=== PATIENT | female | born 1980 | race Caucasian/White ===

== ENCOUNTER 2019-11-15 12:20 | Outpatient (CLI) | payer MEDICARE, MEDICAID, SELFPAY ==
[2019-11-15 12:32] LABS: Basophils Absolute Auto 0.04 K/mm3 (0.00-0.10); Basophils Percent Auto 0.9 % (0.0-1.0); Eosinophils Absolute Auto 0.23 K/mm3 (0.02-0.50); Eosinophils Percent Auto 4.9 % (1.0-6.0); Hematocrit 34.9 % (35.0-49.0); Hemoglobin 10.9 g/dL (12.0-15.0); Immature Granulocyte Absolute 0.01 K/mm3 (0.00-0.00); Immature Granulocyte Percent A 0.2 % (0.0-0.0); Lymphocytes Absolute Auto 0.53 K/mm3 (1.10-4.50); Lymphocytes Percent Auto 11.4 % (18.0-42.0); Mean Corpuscular HGB Conc 31.2 g/dL (32.0-36.0); Mean Corpuscular Hemoglobin 31.7 pg (27.0-31.0); Mean Corpuscular Volume 101.5 fL (78.0-102.0); Mean Platelet Volume 11.8 fl (9.2-11.8); Monocytes Percent Auto 6.5 % (2.0-11.0); Neutrophils Absolute Auto 3.5 K/mm3 (1.7-7.2); Neutrophils Percent Auto 76.1 % (50.0-70.0); Platelet Count Result 252 K/mm3 (150-420); Red Blood Count 3.44 M/mm3 (4.20-5.40); Red Cell Distribution Width 15.9 % (11.6-14.4); White Blood Count 4.7 K/mm3 (4.8-10.8)
[2019-11-15 13:16] LABS: Hemoglobin A1C 7.6 % (<5.7)
[2019-11-15 13:35] LABS: Alanine Aminotransferase 49 U/L (14-59); Albumin Level 3.2 g/dL (3.4-5.0); Alkaline Phosphatase 241 U/L (46-116); Anion Gap 15.1 mmol/L (7-16); Aspartate Amino Transferase 36 U/L (15-37); Bilirubin,Total 0.7 mg/dL (0.00-1.00); Blood Urea Nitrogen 49 mg/dL (7-18); Calcium 8.3 mg/dL (8.5-10.1); Carbon Dioxide 29 mmol/L (21-32); Chloride 103 mmol/L (98-108); Estimated Glomerular Filt Rate 10; Glucose 205 mg/dL (70-99); Osmolality Calculated 315 mOsm/kg (285-295); Potassium 4.1 mmol/L (3.5-5.1); Sodium 143 mmol/L (136-145); Thyroid Stimulating Hormone 2.96 uIU/mL (0.36-3.74); Total Protein 6.2 g/dL (6.4-8.2)
== END 2019-11-15 12:21 | disposition home or self-care (01) ==
LOC: CHSLAB 12:22
PROVIDERS: PCP Family Medicine; Visit Provider Family Medicine
DX: E10.42 Type 1 diabetes mellitus with diabetic polyneuropathy (principal); D72.819 Decreased white blood cell count, unspecified; D64.9 Anemia, unspecified
CPT/HCPCS: 36415; 80053; 83036; 84443; 85025

== ENCOUNTER 2020-02-21 13:32 | Outpatient (CLI) | payer MEDICARE, SELFPAY ==
[2020-02-21 13:45] LABS: Basophils Absolute Auto 0.05 K/mm3 (0.00-0.10); Eosinophils Absolute Auto 0.23 K/mm3 (0.02-0.50); Eosinophils Percent Auto 4.6 % (1.0-6.0); Hemoglobin 11.3 g/dL (12.0-15.0); Immature Granulocyte Absolute 0.02 K/mm3 (0.00-0.00); Immature Granulocyte Percent A 0.4 % (0.0-0.0); Lymphocytes Absolute Auto 0.46 K/mm3 (1.10-4.50); Lymphocytes Percent Auto 9.3 % (18.0-42.0); Mean Corpuscular HGB Conc 31.4 g/dL (32.0-36.0); Mean Corpuscular Hemoglobin 31.5 pg (27.0-31.0); Mean Corpuscular Volume 100.3 fL (78.0-102.0); Mean Platelet Volume 10.6 fl (9.2-11.8); Monocytes Absolute Auto 0.26 K/mm3 (0.10-0.90); Monocytes Percent Auto 5.2 % (2.0-11.0); Neutrophils Absolute Auto 3.9 K/mm3 (1.7-7.2); Neutrophils Percent Auto 79.5 % (50.0-70.0); Platelet Count Result 219 K/mm3 (150-420); Red Blood Count 3.59 M/mm3 (4.20-5.40); Red Cell Distribution Width 15.3 % (11.6-14.4)
[2020-02-21 13:54] LABS: Hemoglobin A1C 6.8 % (<5.7)
[2020-02-21 14:24] LABS: Alanine Aminotransferase 34 U/L (14-59); Albumin Level 2.8 g/dL (3.4-5.0); Alkaline Phosphatase 169 U/L (46-116); Anion Gap 13.9 mmol/L (7-16); Aspartate Amino Transferase 30 U/L (15-37); Bilirubin,Total 0.5 mg/dL (0.00-1.00); Blood Urea Nitrogen 56 mg/dL (7-18); Calcium 8.3 mg/dL (8.5-10.1); Carbon Dioxide 30 mmol/L (21-32); Chloride 102 mmol/L (98-108); Creatine Kinase 255 U/L (26-192); Estimated Glomerular Filt Rate 9; Glucose 132 mg/dL (70-99); Osmolality Calculated 311 mOsm/kg (285-295); Potassium 3.9 mmol/L (3.5-5.1); Sodium 142 mmol/L (136-145); Total Protein 5.3 g/dL (6.4-8.2)
== END 2020-02-21 13:33 | disposition home or self-care (01) ==
LOC: CHSLAB 13:35
PROVIDERS: PCP Family Medicine; Visit Provider Family Medicine
DX: E78.2 Mixed hyperlipidemia (principal); E10.42 Type 1 diabetes mellitus with diabetic polyneuropathy
CPT/HCPCS: 36415; 80053; 82550; 83036; 85025

== ENCOUNTER 2020-03-01 09:53 | Outpatient (RCR) | payer MEDICARE, SELFPAY ==
[2020-03-01 10:16] LABS: INR 2.1; Prothrombin Time 21.1 Seconds (9.64-11.0)
== END 2020-05-30 23:59 | disposition home or self-care (01) ==
LOC: CHSLAB 09:53
PROVIDERS: PCP Family Medicine; Visit Provider Family Medicine
DX: I48.91 Unspecified atrial fibrillation (principal); Z79.01 Long term (current) use of anticoagulants; Z95.3 Presence of xenogenic heart valve
CPT/HCPCS: 36415; 85610

== ENCOUNTER 2020-03-09 21:06 | Observation (INO) | payer MEDICARE, MEDICAID, SELFPAY ==
--- NOTE | ~2020-03-09 | XR_ITS ---
EXAMINATION: XR chest 1V portable DATE: 03/09/2020 22:30 INDICATION: Left-sided chest pain TECHNIQUE: frontal view of the chest was obtained. COMPARISON: Chest radiograph dated 08/02/2019 FINDINGS: The lungs remain clear with no focal airspace opacities, pulmonary edema, pleural effusion or pneumot horax. Cardiomegaly with change of prior median sternotomy and aortic valve replacement. There are ad ditional mediastinal clips which could also be related to coronary artery bypass grafting. Stenting o f the left brachiocephalic vein. Implantable site monitor projects over the left lower lung zone. Again seen is osteotomy versus osteolysis of the distal left clavicle. IMPRESSION: 1. No acute cardiopulmonary disease. 2. Cardiomegaly. 3. Postoperative changes as detailed above. Reviewed, dictated and finalized at location A.
[2020-03-09 21:08] VITALS: BP 118/44; PULSE 85; RESP 19; TEMP 36.7; O2SAT 100
[2020-03-09 21:15] VITALS: BP 126/54; PULSE 85; RESP 18; O2SAT 98
[2020-03-09 21:18] VITALS: PULSE 78
--- NOTE | 2020-03-09 21:23 | ECG_ITS ---
Measurements Intervals [place] Rate: 79 P: ID: 0 QRS: 204 QRSD: 166 T: 61 QT: 455 QTc: 522 Interpretive Statements ATRIAL SENSE- ELECTRONIC VENTRICULAR PACEMAKER BASELINE ARTIFACT- I, II NO FURTHER INTERPRETATION IS POSSIBLE ATYPICAL ECG Electronically Signed On 03-10-2020 17:28:51 CDT by Polo Acosta D.O.
--- NOTE | 2020-03-09 21:58 | ED.CHESTPAIN ---
HPI - Chest Pain General Chief Complaint: Chest Pain Stated Complaint: PAIN IN MY WHOLE L SIDE Time Seen by Provider: 03/09/20 21:47 Source: patient and family Mode of arrival: ambulatory History of Present Illness HPI narrative: This patient is a 39 year old female with history of CHF, DM, ESRD on dialysis, pacemaker , endocarditis who presents for evaluation of chest pain. She states around 130 pm today she developed indigestion after returning from dialysis. She describes having burning epigastric pain that radiated to her throat at that time. She states these symptoms resolved after taking Tums. She states 3 hours later she developed jerking pain to left chest and left arm. This pain has remained and it is associated with dizziness. 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 complaint: chest pain Related Data Home Medications Medication Instructions Recorded Confirmed aspirin [Adult Low Dose Aspirin] 03/09/20 atorvastatin 20 mg PO DAILY 03/09/20 03/10/20 buspirone 5 mg PO TID 03/09/20 03/10/20 citalopram 20 mg PO DAILY 03/09/20 03/10/20 docusate sodium [Colace] 100 mg PO BID 03/09/20 furosemide 60 mg PO DAILY 03/09/20 03/10/20 insulin glargine [Lantus U-100 10 unit SUBCUT QPM 03/09/20 Insulin] insulin lispro [Humalog KwikPen See Protocol SUBCUT 03/09/20 Insulin] midodrine See Rx Instructions .ROUTE .COMPLEX 03/09/20 03/10/20 nortriptyline 10 mg PO DAILY 03/09/20 03/10/20 pantoprazole 40 mg PO HS 03/09/20 03/10/20 quetiapine 75 mg PO DAILY 03/09/20 03/10/20 ropinirole 1 mg PO BID 03/09/20 03/10/20 sevelamer HCl 1,600 mg PO TID 03/09/20 03/10/20 ergocalciferol (vitamin D2) 1,250 mcg PO WEEKLY 03/10/20 03/10/20 loratadine [Claritin] 10 mg PO EVERY OTHER DAY PRN 03/10/20 03/10/20 metoprolol succinate 12.5 mg PO BID 03/10/20 03/10/20 warfarin [Coumadin] 8 mg PO DAILY 03/10/20 03/10/20 Allergies Allergy/AdvReac Type Severity Reaction Status Date / Time latex Allergy Intermediate Hives / Verified 06/21/19 14:55 Red Face oxycodone Allergy Intermediate Nausea and Verified 06/21/19 14:55 Vomiting Sulfa (Sulfonamide Allergy Unknown Verified 07/26/17 14:33 Antibiotics) Review of Systems Review of Systems: All systems reviewed & are unremarkable except as noted in HPI and below Constitutional: Constitutional: Denies chills, Denies fever(s) and Denies weakness ENT: Reports dizziness Cardiovascular: Cardiovascular: Reports chest pain and Reports radiating jaw, neck or arm pain Respiratory: Respiratory: Denies cough, Denies dyspnea and Denies wheezing Gastrointestinal: Gastrointestinal: Denies abdominal pain, Denies nausea and Denies vomiting Musculoskeletal: Musculoskeletal: Reports back pain [facility] Past Medical History Medical History (Updated 03/10/20 @ 02:36 by Jinny Moran MD) CHF (congestive heart failure) Chronic anemia Diabetes mellitus Endocarditis ESRD on dialysis Surgical History Surgical History History of heart valve repair Pacemaker Family History Family History (Updated 03/10/20 @ 01:56 by Tati Beckman RN) Other No family history of disorders Social History Social History Smoking status: Never smoker Second hand tobacco smoke exposure: Yes Alcohol intake: former Substance use: never Gender identity (if verbalized by the patient): Female Spiritual care concerns: No Exam Const: General: no acute distress and alert Orientation/consciousness: patient oriented x3 Eyes: EOM: EOMs intact bilaterally Chest: Chest palpation & inspection: no tenderness Other: midline sternotomy scar Resp: Effort & Inspection: normal respiratory effort, no retractions, not tachypneic and no use of accessory muscles Auscultation: clear to auscultation bilaterally Cardio: Rate: regular rate Rhythm: reg
[2020-03-09 22:15] LABS: Basophils Absolute Auto 0.1 K/mm3 (0.0-0.1); Basophils Percent Auto 0.7 % (0.2-1.2); Eosinophils Absolute Auto 0.1 K/mm3 (0-0.3); Eosinophils Percent Auto 1.5 % (0-4.4); Hematocrit 35.2 % (37.0-47.0); Hemoglobin 11.5 g/dL (12.0-15.0); Immature Granulocyte Absolute 0.05 K/mm3 (0.00-0.031); Immature Granulocyte Percent A 0.5 % (0-0.5); Lymphocytes Absolute Auto 0.54 K/mm3 (0.9-3.2); Lymphocytes Percent Auto 5.8 % (18.3-44.2); Mean Corpuscular HGB Conc 32.7 g/dl (32-36); Mean Corpuscular Hemoglobin 30.9 pg (26-34); Mean Corpuscular Volume 94.6 fl (80-100); Mean Platelet Volume 12.8 fl (7.4-10.4); Monocytes Absolute Auto 0.6 K/mm3 (0.1-0.6); Monocytes Percent Auto 6.9 % (2.6-8.5); Neutrophils Absolute Auto 7.9 K/mm3 (1.3-6.7); Neutrophils Percent Auto 84.6 % (45.5-73.1); Platelet Count Result 335 k/mm3 (150-375); Red Blood Count 3.72 M/mm3 (4.2-5.4); Red Cell Distribution Width 15.5 % (11.5-14.5); White Blood Count 9.3 K/mm3 (4.5-10.0)
[2020-03-09 22:19] VITALS: BP 126/54; PULSE 77; RESP 18; O2SAT 100
[2020-03-09] MEDS: ASPIRIN 81 MG CHEWABLE TABLET 324 MG PO (22:20)
[2020-03-09 22:25] LABS: INR 2.6; Prothrombin Time 27.7 Seconds (11.1-14.7)
[2020-03-09 22:26] LABS: Partial Thromboplastin Time 41.1 SECONDS (22.3-36.8); Potassium 4.9 mmol/L (3.4-5.0)
[2020-03-09 22:29] LABS: Blood Urea Nitrogen 56 mg/dL (7-17); Calcium 8.1 mg/dL (8.4-10.2); Carbon Dioxide 24 mmol/L (22-30); Chloride 98 mmol/L (98-107); Estimated CRCL calculation 15 ml/min; Estimated Glomerular Filt Rate 13; Glucose 322 mg/dL (65-105); Sodium 134 mmol/L (137-145)
[2020-03-09 22:44] LABS: Troponin I 0.103 ng/mL (0.000-0.034)
--- NOTE | 2020-03-09 23:10 | PC.NURSE ---
Called lab to add on BNP
[2020-03-09] MEDS: ONDANSETRON INJ 4 MG/2 ML VIAL IV PUSH (23:13)
[2020-03-09] MEDS: MORPHINE SULFATE 2 MG/ML INJ IV PUSH (23:13)
[2020-03-09 23:29] LABS: NT Pro B Type Natriuretic Pept > 35000 PG/ML (5-100)
[2020-03-09 23:37] VITALS: BP 108/42; PULSE 87; RESP 16; O2SAT 98
[2020-03-10] VITALS (28 sets, daily range): BP systolic 101–127; BP diastolic 31–74; PULSE 72–118; RESP 12–18; TEMP 36–36.7; O2SAT 91–100; BMI 29.5; BMI 28.5
--- NOTE | 2020-03-10 00:26 | PM.IMHP ---
H&P: HPI History of Present Illness Chief complaint: chest pain, elevated troponin Narrative: This is a pleasant 39 year old diabetic female on chronic coumadin therapy, ESRD on dialysis and previous cardiac arrest presented to the hospital [facility] with a complaint of left sided chest pain that started around 4 pm yesterday afternoon when she came home from dialysis. The patient is known to undergo dialysis on //. She described her chest pain as occuring at rest and characterized it as pressure like extending over the front of her chest. She denies that her chest pain is pleuritic or positional. Her chest pain lasted several hours and has resolved. She denies any associated nausea, vomiting, or diaphoresis. The patient has recently just started to live on her own in her own apartment and her mother reports that the patient has not been eating well. She has been eating hotdogs, macaroni and cheese, and drinking diet 7 ups. Her mother has noticed that the patient has significant worsening of her lower extremity swelling. She normally doesn't eat foods high in sodium until this week. The patient was evaluated in the ER and routine labs demonstrated a mildly elevated troponin. Cardiology was consulted by ER provider and has asked that we admit the patient to the hospital for cardiac rule out. Review of Systems Review of Systems: All systems reviewed & are unremarkable except as noted in HPI and below PMFSH Past Medical History Medical History (Updated 03/10/20 @ 04:07 by Charly Young MD) CHF (congestive heart failure) Chronic anemia Diabetes mellitus Endocarditis ESRD on dialysis Surgical History Surgical History History of heart valve repair Pacemaker Family History Family History (Updated 03/10/20 @ 01:56 by Tati Beckman RN) Other No family history of disorders Social History Social History Smoking status: Never smoker Second hand tobacco smoke exposure: Yes Alcohol intake: former Substance use: never Gender identity (if verbalized by the patient): Female Spiritual care concerns: No Meds Home Medications and Allergies Home Medications Medication Instructions Recorded Confirmed Type aspirin [Adult Low Dose Aspirin] 81 mg PO DAILY 03/09/20 03/10/20 History atorvastatin 20 mg PO DAILY 03/09/20 03/10/20 History buspirone 5 mg PO TID 03/09/20 03/10/20 History citalopram 20 mg PO DAILY 03/09/20 03/10/20 History docusate sodium [Colace] 100 mg PO BID 03/09/20 03/10/20 History furosemide 60 mg PO DAILY 03/09/20 03/10/20 History insulin glargine [Lantus U-100 12 unit SUBCUT QPM 03/09/20 03/10/20 History Insulin] insulin lispro [Humalog KwikPen See Protocol SUBCUT TID 03/09/20 03/10/20 History Insulin] midodrine See Rx Instructions .ROUTE .COMPLEX 03/09/20 03/10/20 History nortriptyline 10 mg PO DAILY 03/09/20 03/10/20 History pantoprazole 40 mg PO HS 03/09/20 03/10/20 History quetiapine 75 mg PO DAILY 03/09/20 03/10/20 History ropinirole 1 mg PO BID 03/09/20 03/10/20 History sevelamer HCl 1,600 mg PO TID 03/09/20 03/10/20 History calcium carbonate 1,000 mg PO DAILY 03/10/20 03/10/20 History ergocalciferol (vitamin D2) 1,250 mcg PO WEEKLY 03/10/20 03/10/20 History loratadine [Claritin] 10 mg PO EVERY OTHER DAY PRN 03/10/20 03/10/20 History metoprolol succinate 12.5 mg PO BID 03/10/20 03/10/20 History warfarin [Coumadin] 8 mg PO DAILY 03/10/20 03/10/20 History Allergies Allergy/AdvReac Type Severity Reaction Status Date / Time latex Allergy Intermediate Hives / Verified 06/21/19 14:55 Red Face oxycodone Allergy Intermediate Nausea and Verified 06/21/19 14:55 Vomiting Sulfa (Sulfonamide Allergy Unknown Verified 07/26/17 14:33 Antibiotics) Vital Signs Vital Signs - 24 hr 03/09/20 21:08 03/09/20 21:15 03/09/20 21:18 Temperature 36.7 C Pulse Rate 85
--- NOTE | 2020-03-10 01:05 | ECG_ITS ---
Measurements Intervals [place] Rate: 79 P: 258 ID: 264 QRS: 202 QRSD: 188 T: 92 QT: 497 QTc: 570 Interpretive Statements ELECTRONIC VENTRICULAR PACEMAKER NO FURTHER INTERPRETATION IS POSSIBLE ATYPICAL ECG Electronically Signed On 03-10-2020 11:25:04 CDT by Polo Acosta D.O.
[2020-03-10 01:23] LABS: Troponin I 0.092 ng/mL (0.000-0.034)
--- NOTE | 2020-03-10 01:55 | PC.NURSE ---
This patient, Beatrice Obrien, was admitted to IMU Room 200-01 at 0125. Patient/family oriented to hospital policies and general routines including ID bracelet, bed and alarms, visiting hours, pain management, procedures, bathroom and other care routines, personal items, smoking policy, room service/diet, and visiting hours. Valuables list has been completed. Information on how to activate the Rapid Response Team has been discussed. Patient/Family are encouraged to report perceived risks to care and to ask questions if they do not understand what they are told or what they should do.
[2020-03-10 05:47] LABS: Troponin I 0.085 ng/mL (0.000-0.034)
[2020-03-10 05:57] LABS: Cholesterol 113 mg/dL (0-200); HDL Direct 37 mg/dL; Triglycerides 102 mg/dL (<150)
[2020-03-10 06:08] LABS: LDL Cholesterol Direct 63 mg/dL
[2020-03-10 08:22] LABS: Glucose Point of Care 251 (65-105)
[2020-03-10] MEDS: ASPIRIN 81 MG ENTERIC TABLET PO (09:40)
[2020-03-10] MEDS: CALCIUM CARBONATE (TUMS) 500 MG (200 MG ELEMENTAL) 400 MG PO (09:40)
[2020-03-10] MEDS: ATORVASTATIN 20 MG TABLET PO (09:40)
[2020-03-10] MEDS: CITALOPRAM HYDROBROMIDE 20 MG TABLET PO (09:40)
[2020-03-10] MEDS: busPIRone HCL 5 MG TABLET PO ×3 (09:40→16:55)
[2020-03-10] MEDS: NORTRIPTYLINE HCL 10 MG CAPSULE PO (09:41)
[2020-03-10] MEDS: INSULIN ASPART (*BKC) 100 UNITS/ML SUB-Q ×3 (09:41→17:27)
[2020-03-10] MEDS: SEVELAMER CARBONATE 800 MG TABLET 1600 MG PO ×3 (09:41→16:56)
[2020-03-10] MEDS: DOCUSATE SODIUM 100 MG CAPSULE PO ×2 (09:41→16:57)
[2020-03-10] MEDS: FUROSEMIDE 20 MG TABLET 60 MG PO (09:41)
[2020-03-10] MEDS: QUEtiapine FUMARATE 25 MG TABLET 75 MG PO (09:41)
--- NOTE | 2020-03-10 10:17 | PM.CNCAR ---
Assessment and Plan Additional Plan Atypical chest pain, mildly elevated trop likely related to severely elevator LVEDP from severe AI. Her prior care has been in [place]. She is undergoing evaluation for possible further intervention. Plan lasix IV 40 mg BID, cont metoprolol, warfarin, gets records from [facility], she will probably benefit from transfer to [place] and continue her care over there. History of Present Illness History of Present Illness Consult date/time: 03/10/20 10:17 Consult reason: chest pain Reason For Visit: chest pain, elevated troponin Narrative: Patient is poor historian. Patient presented with chest tightness, moderate in severity, started yesterday afternoon and lasted for hours, no precipitating or relieving factors, associated with SOB and LE swelling. She had HX of AVR in [place] in 2017 for infective endocarditis that was complicated with cardiogenic shock and FRANKIE and has been on dialysis since then. 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 She had had redo surgery with bioprosthetic valve in 2019 and was complicated with CHB and needed leadless pacer. She is noted to have sever valvular regurgitation and undergoing evaluation for consideration of further intrevention. Review of Systems Review of Systems: All systems reviewed & are unremarkable except as noted in HPI and below PMFSH Past Medical History Medical History (Updated 03/10/20 @ 04:07 by Charly Young MD) CHF (congestive heart failure) Chronic anemia Diabetes mellitus Endocarditis ESRD on dialysis Surgical History Surgical History History of heart valve repair Pacemaker Family History Family History (Updated 03/10/20 @ 01:56 by aTti Beckman RN) Other No family history of disorders Social History Social History Smoking status: Never smoker Second hand tobacco smoke exposure: Yes Alcohol intake: former Substance use: never Gender identity (if verbalized by the patient): Female Spiritual care concerns: No Meds Home Medications and Allergies Home Medications Medication Instructions Recorded Confirmed Type aspirin [Adult Low Dose Aspirin] 81 mg PO DAILY 03/09/20 03/10/20 History atorvastatin 20 mg PO DAILY 03/09/20 03/10/20 History buspirone 5 mg PO TID 03/09/20 03/10/20 History citalopram 20 mg PO DAILY 03/09/20 03/10/20 History docusate sodium [Colace] 100 mg PO BID 03/09/20 03/10/20 History furosemide 60 mg PO DAILY 03/09/20 03/10/20 History insulin glargine [Lantus U-100 12 unit SUBCUT QPM 03/09/20 03/10/20 History Insulin] insulin lispro [Humalog KwikPen See Protocol SUBCUT TID 03/09/20 03/10/20 History Insulin] midodrine See Rx Instructions .ROUTE .COMPLEX 03/09/20 03/10/20 History nortriptyline 10 mg PO DAILY 03/09/20 03/10/20 History pantoprazole 40 mg PO HS 03/09/20 03/10/20 History quetiapine 75 mg PO DAILY 03/09/20 03/10/20 History ropinirole 1 mg PO BID 03/09/20 03/10/20 History sevelamer HCl 1,600 mg PO TID 03/09/20 03/10/20 History calcium carbonate 1,000 mg PO DAILY 03/10/20 03/10/20 History ergocalciferol (vitamin D2) 1,250 mcg PO WEEKLY 03/10/20 03/10/20 History loratadine [Claritin] 10 mg PO EVERY OTHER DAY PRN 03/10/20 03/10/20 History metoprolol succinate 12.5 mg PO BID 03/10/20 03/10/20 History warfarin [Coumadin] 8 mg PO DAILY 03/10/20 03/10/20 History Allergies Allergy/AdvReac Type Severity Reaction Status Date / Time latex Allergy Intermediate Hives / Verified 06/21/19 14:55 Red Face oxycodone Allergy Intermediate Nausea and Verified 06/21/19 14:55 Vomiting Sulfa (Sulfonamide Allergy Unknown Verified 07/26/17 14:33 Antibiotics) Vital Signs Vital Signs - 24 hr 03/09/20 21:08 03/09/20 21:15 03/09/20 21:18 Temperature 36.7 C Pulse Rate 85 85 78 Respiratory Rate 19 18 Blood Pressure
[2020-03-10 10:42] LABS: INR 3.5; Prothrombin Time 34.6 Seconds (11.1-14.7)
[2020-03-10 10:45] LABS: Blood Urea Nitrogen 62 mg/dL (7-17); Calcium 7.9 mg/dL (8.4-10.2); Carbon Dioxide 27 mmol/L (22-30); Chloride 97 mmol/L (98-107); Estimated CRCL calculation 15 ml/min; Estimated Glomerular Filt Rate 11; Glucose 311 mg/dL (65-105); Sodium 131 mmol/L (137-145)
--- NOTE | 2020-03-10 12:16 | PM.CNNEP ---
Assessment and Plan Assessment and plan (1) ESRD on dialysis: Code(s): N18.6 - End stage renal disease; Z99.2 - Dependence on renal dialysis Status: Chronic Assessment and Plan: Beatrice has end-stage renal disease. She had dialysis yesterday. She is not sure whether they took all the fluid off or not. These records are unavailable. She does have slight crackles and trace edema but more importantly cardiology thinks that the chest pain is from high fluid burden. Her electrolytes look okay so I will do a dry ultrafiltration to take a couple of L off. It would be okay for her to be discharged after this. I asked her to consider dialysis 4 days a week (2) CHF (congestive heart failure): Code(s): I50.9 - Heart failure, unspecified Status: Chronic Assessment and Plan: The patient has valvular heart disease. Unfortunately there is only so much we can do with volume control and medications when is the valve that is the problem. Cardiology asked her to go to [place] if she gets chest pain again as there is more that they can do. (3) Diabetes mellitus: Qualifiers: Diabetes mellitus type: type 2 Diabetes mellitus [facility]p insulin use: with long term acute care registered nurse use Diabetes mellitus complication status: without complication Qualified Code(s): E11.9 - Type 2 diabetes mellitus without complications; Z79.4 - halfway (current) use of insulin Code(s): E11.9 - Type 2 diabetes mellitus without complications Status: Chronic Assessment and Plan: The patient has diabetes. Hospitalists are watching her sugars. History of Present Illness Reason for Consult Consult date: 03/10/20 Chief Complaint Chief complaint: chest pain, elevated troponin History of Present Illness Narrative: Beatrice is a very pleasant lady who is from [place]. She has end-stage renal disease, aortic valve disease, diabetes, anemia, renal osteodystrophy, and congestive heart failure. The patient came into the hospital because she was having chest pain. She was seen by Cardiology. She has severe aortic insufficiency and he feels that her LVEDP is high which is causing the chest pain. The patient is going to need dialysis so renal consultation was requested. The patient has trouble started in 2011 when she had aortic valve replacement with a mechanical valve. Apparently this got infected so this was replaced by urine half ago with a pig valve. She has had complications since then including a perivalvular leak and aortic insufficiency. She also has tricuspid insufficiency as well. The patient has had a lot of trouble with fluid overload. She generally gets dialyzed 3 times a week. She has been on dialysis for about 4 years. Her end-stage kidney disease was caused by diabetes. She has done pretty well on dialysis she says. She had dialysis yesterday but she does not know anything about her dry weight. So she does not know if they got all the fluid off yesterday. Review of Systems Constitutional: Constitutional: Reports no additional constitutional complaints Eyes: Eyes: Reports no additional eye complaints ENT: Reports system reviewed and no additional complaints, except as documented Cardiovascular: Cardiovascular: Reports no additional cardiovascular complaints Respiratory: Respiratory: Reports no additional respiratory complaints Gastrointestinal: Gastrointestinal: Reports no additional gastrointestinal complaints Genitourinary: Genitourinary: Reports no additional female genitourinary complaints Musculoskeletal: Musculoskeletal: Reports no additional musculoskeletal complaints Integumentary/Breasts: Skin/Breast: Reports system reviewed and no additional complaints, except as docu Neurologic: Reports system reviewed and no additional complaints, except as documented Psychiatric: Psychiatric: Reports no additional psychiatric complaints Endocrine: Endocrine: Reports no additional endocrine complain
[2020-03-10 12:38] LABS: Glucose Point of Care 262 (65-105)
--- NOTE | 2020-03-10 12:48 | P.PNIM_ITS ---
Progress Note: A&P Assessment and Plan (1) Chest pain: Code(s): R07.9 - Chest pain, unspecified Status: Acute Assessment and Plan: Currently resolved. CP likely due to AI with possibly volume overload vs muscul oskeletal pain. ACS less likely. Troponins plateaued. Monitor for chest pain. Cardiology consulted by ED and appreciate recommendations. * Cardiology feels patient will benefit from dialysis today; Nephrology following and will undergo dialysis today; possible discharge after if patient feeling okay * Monitor for chest pain * Patient otherwise clinically looks okay; possible discharge today vs tomorrow (2) Elevated troponin: Code(s): R79.89 - Other specified abnormal findings of blood chemistry Status: Acute Assessment and Plan: Troponin leak is likely secondary to ESRD. Plateaued. ACS unlikely * Monitor for chest pain (3) Diabetes mellitus: Qualifiers: Diabetes mellitus complication status: without complication Diabetes mellitus prison insulin use: with bed bug exterminator use Diabetes mellitus type: type 2 Qualified Code(s): E11.9 - Type 2 diabetes mellitus without complications; Z79.4 - prison (current) use of insulin Code(s): E11.9 - Type 2 diabetes mellitus without complications Status: Chronic Assessment and Plan: A1c 6.8 earlier this month. BGL in 200s today * Accuchecks, SSI Coverage, Hypoglycemic protocol. * Continue home long acting insulin therapy. (4) ESRD on dialysis: Code(s): N18.6 - End stage renal disease; Z99.2 - Dependence on renal dialysis Status: Chronic Assessment and Plan: Nephrology consultation has been placed; appreciate input * Patient had IV lasix per Cardiology rec * Will go for dialysis today for fluid removal * Potential discharge today or tomorrow pending patient toleration of dialysis (5) CHF (congestive heart failure): Code(s): I50.9 - Heart failure, unspecified Status: Chronic Assessment and Plan: Patient does seem to be somewhat fluid overloaded on exam and likely secondary to increased salt intake over the past week. * Nephrology following and appreciate recommendation * Dialysis today * Okay for discharge if tolerating dialysis today (6) Chronic anemia: Code(s): D64.9 - Anemia, unspecified Status: Chronic Assessment and Plan: No signs of acute blood loss. * Monitor H/H * transfuse prn. (7) Chronic anticoagulation: Code(s): Z79.01 - prison (current) use of anticoagulants Status: Chronic Assessment and Plan: INR 3.5 * Continue coumadin therapy * Monitor PT/INR. Subjective Date/time seen: 03/10/20 12:48 Interval history: Patient is a 39 yo F with history of diabetic female on chronic coumadin therapy, ESRD on dialysis (M,W,F) and previous cardiac arrest who is here for evaluation of chest pain. Patient tells me her pain has since resolved since admission. She denies any shortness of breath or changes in her LE edema. She makes some urine; no acute issues at the moment. She has a mild headache currently. She otherwise has no other complaints. Denies f/c/s,di zziness, lightheadedness, changes in v/h, current cp/palpitations, sob/cough, n/v/d/c, abd pain, changes in BMs, dysuria, hematuria, cloudy urine, calf pain. Review of Sys
--- NOTE | 2020-03-10 12:48 | PM.IMPN ---
Progress Note: A&P Assessment and Plan (1) Chest pain: Code(s): R07.9 - Chest pain, unspecified Status: Acute Assessment and Plan: Currently resolved. CP likely due to AI with possibly volume overload vs musculoskeletal pain. ACS less likely. Troponins plateaued. Monitor for chest pain. Cardiology consulted by ED and appreciate recommendations. Cardiology feels patient will benefit from dialysis today; Nephrology following and will undergo dialysis today; possible discharge after if patient feeling okay Monitor for chest pain Patient otherwise clinically looks okay; possible discharge today vs tomorrow (2) Elevated troponin: Code(s): R79.89 - Other specified abnormal findings of blood chemistry Status: Acute Assessment and Plan: Troponin leak is likely secondary to ESRD. Plateaued. ACS unlikely Monitor for chest pain (3) Diabetes mellitus: Qualifiers: Diabetes mellitus complication status: without complication Diabetes mellitus longterm insulin use: with longterm use Diabetes mellitus type: type 2 Qualified Code(s): E11.9 - Type 2 diabetes mellitus without complications; Z79.4 - moth exterminator (current) use of insulin Code(s): E11.9 - Type 2 diabetes mellitus without complications Status: Chronic Assessment and Plan: A1c 6.8 earlier this month. BGL in 200s today Accuchecks, SSI Coverage, Hypoglycemic protocol. Continue home long acting insulin therapy. (4) ESRD on dialysis: Code(s): N18.6 - End stage renal disease; Z99.2 - Dependence on renal dialysis Status: Chronic Assessment and Plan: Nephrology consultation has been placed; appreciate input Patient had IV lasix per Cardiology rec Will go for dialysis today for fluid removal Potential discharge today or tomorrow pending patient toleration of dialysis (5) CHF (congestive heart failure): Code(s): I50.9 - Heart failure, unspecified Status: Chronic Assessment and Plan: Patient does seem to be somewhat fluid overloaded on exam and likely secondary to increased salt intake over the past week. Nephrology following and appreciate recommendation Dialysis today Okay for discharge if tolerating dialysis today (6) Chronic anemia: Code(s): D64.9 - Anemia, unspecified Status: Chronic Assessment and Plan: No signs of acute blood loss. Monitor H/H transfuse prn. (7) Chronic anticoagulation: Code(s): Z79.01 - jail (current) use of anticoagulants Status: Chronic Assessment and Plan: INR 3.5 Continue coumadin therapy Monitor PT/INR. Subjective Date/time seen: 03/10/20 12:48 Interval history: Patient is a 39 yo F with history of diabetic female on chronic coumadin therapy, ESRD on dialysis (M,W,F) and previous cardiac arrest who is here for evaluation of chest pain. Patient tells me her pain has since resolved since admission. She denies any shortness of breath or changes in her LE edema. She makes some urine; no acute issues at the moment. She has a mild headache currently. She otherwise has no other complaints. Denies f/c/s,dizziness, lightheadedness, changes in v/h, current cp/palpitations, sob/cough, n/v/d/c, abd pain, changes in BMs, dysuria, hematuria, cloudy urine, calf pain. Review of Systems Review of Systems: All systems reviewed & are unremarkable except as noted in HPI and below Exam Narrative: Exam Narrative: Patient sitting upright on side of bed at time of visit Const: General: cooperative, healthy appearing, comfortable, no acute distress, well developed, alert and awake Nutritional Appearance: well nourished Orientation/consciousness
[2020-03-10 14:02] LABS: Hepatitis B Surface Antigen Negative (Negative)
[2020-03-10 14:21] LABS: Hepatitis B Surface Anti Res Indeterminate
[2020-03-10] MEDS: ACETAMINOPHEN 325 MG TABLET 650 MG PO (16:54)
[2020-03-10] MEDS: WARFARIN (*PBKC) 4 MG TABLET 8 MG PO (16:56)
[2020-03-10 17:00] LABS: Glucose Point of Care 273 (65-105)
[2020-03-10] MEDS: INSULIN GLARGINE (*BKC) 100 UNITS/ML 12 UNITS SUB-Q (17:26)
[2020-03-10 20:24] LABS: Glucose Point of Care 293 (65-105)
[2020-03-10] MEDS: LORATADINE 10 MG TABLET PO (20:58)
[2020-03-10] MEDS: PANTOPRAZOLE 40 MG TABLET PO (20:58)
[2020-03-11] VITALS: PULSE 79; RESP 18; O2SAT 96
[2020-03-11] MEDS: ACETAMINOPHEN 325 MG TABLET 650 MG PO (00:25)
[2020-03-11 02:00] VITALS: PULSE 84
[2020-03-11 04:00] VITALS: BP 110/56; PULSE 78; PULSE 83; RESP 16; TEMP 36; O2SAT 96
[2020-03-11 04:37] LABS: Hematocrit 31.3 % (37.0-47.0); Immature Platelet Fraction Pct 4.1 % (0.9-11.2); Mean Corpuscular HGB Conc 31.9 g/dl (32-36); Mean Corpuscular Hemoglobin 30.8 pg (26-34); Mean Corpuscular Volume 96.3 fl (80-100); Mean Platelet Volume 12.7 fl (7.4-10.4); Platelet Count Result 197 k/mm3 (150-375); Red Blood Count 3.25 M/mm3 (4.2-5.4); Red Cell Distribution Width 15.7 % (11.5-14.5)
[2020-03-11 05:00] LABS: Albumin Level 2.9 g/dL (3.5-5.1); Blood Urea Nitrogen 72 mg/dL (7-17); Calcium 7.9 mg/dL (8.4-10.2); Carbon Dioxide 26 mmol/L (22-30); Chloride 97 mmol/L (98-107); Estimated CRCL calculation 13 ml/min; Estimated Glomerular Filt Rate 8; Glucose 334 mg/dL (65-105); Magnesium 1.9 mg/dL (1.6-2.3); Phosphorus 6.2 mg/dL (2.5-4.5); Sodium 130 mmol/L (137-145)
[2020-03-11 05:02] LABS: INR 4.1; Prothrombin Time 39.1 Seconds (11.1-14.7)
[2020-03-11 06:00] VITALS: PULSE 74
[2020-03-11 08:00] VITALS: BP 135/88; PULSE 73; RESP 16; TEMP 36.1; O2SAT 94
[2020-03-11 08:15] LABS: Glucose Point of Care 282 (65-105)
--- NOTE | 2020-03-11 08:16 | P.DS_ITS ---
DS: Admitting Diagnosis Admitting Diagnosis Admitting Diagnosis: Chest pain, unspecified DS: Discharge Diagnosis Discharge Diagnosis (1) Chest pain: Code(s): R07.9 - Chest pain, unspecified Status: Acute Assessment and Plan: Currently resolved. CP likely due to AI with possibly volume overload vs musculoskeletal pain. ACS less likely. Troponins plateaued. Cardiology consulted by ED and appreciate recommendations. * Cardiology rec dialysis yesterday; Nephrology following as well. Patient had 2L removed yesterday. Tolerated dialysis well. * D/c home today * Monitor for chest pain * Patient otherwise clinically looks okay; possible discharge today vs tomorrow (2) Elevated troponin: Code(s): R79.89 - Other specified abnormal findings of blood chemistry Status: Acute Assessment and Plan: Troponin leak is likely secondary to ESRD. Plateaued. ACS unlikely * f/u with general car yard supervisor (3) Diabetes mellitus: Qualifiers: Diabetes mellitus complication status: without complication Diabetes mellitus terminal make up operator insulin use: with jail use Diabetes mellitus type: type 2 Qualified Code(s): E11.9 - Type 2 diabetes mellitus without complications; Z79.4 - correction (current) use of insulin Code(s): E11.9 - Type 2 diabetes mellitus without complications Status: Chronic Assessment and Plan: A1c 6.8 earlier this month. BGL in 200-300s today * Accuchecks, SSI Coverage, Hypoglycemic protocol during stay * Continue home long acting insulin therapy at discharge (4) ESRD on dialysis: Code(s): N18.6 - End stage renal disease; Z99.2 - Dependence on renal dialysis Status: Chronic Assessment and Plan: Nephrology consultation has been placed; appreciate input * Patient had IV lasix per Cardiology rec * 2L removed on dialysis yesterday * Tolerated well; discharge home today. * Recommend follow up with Crop Puller and discuss potentially going to dialysis 4 times/week * Renal diet/diabetic diet rec (5) CHF (congestive heart failure): Code(s): I50.9 - Heart failure, unspecified Status: Chronic Assessment and Plan: No symptoms reported today. Crackles noted in bases, slight improvement * Nephrology following and appreciate recommendation * Dialysis yesterday * Okay for discharge today (6) Chronic anemia: Code(s): D64.9 - Anemia, unspecified Status: Chronic Assessment and Plan: No signs of significant acute blood loss. * Monitor H/H * transfuse prn. (7) Chronic anticoagulation: Code(s): Z79.01 - manager long term care (current) use of anticoagulants Status: Chronic Assessment and Plan: INR 4.1 * Hold coumadin tonight; resume tomorrow * Monitor PT/INR on 03/14 * F/u with Digester Cook at [facility] after discharge (8) Supratherapeutic INR: Code(s): R79.1 - Abnormal coagulation profile Status: Acute Assessment and Plan: See above a/p DS: Summary Hospital Course Reason for hospitalization: Chest pain, elevated troponin, ACS r/o Hospital Course: Patient is a 39 yo diabetic F with history of chronic coumadin therapy, ESRD on dialysis (MWF) and previous cardiac arrest who presented to the hospital on 03/09 with a complaint of left sided
--- NOTE | 2020-03-11 08:16 | PM.DS ---
DS: Admitting Diagnosis Admitting Diagnosis Admitting Diagnosis: Chest pain, unspecified DS: Discharge Diagnosis Discharge Diagnosis (1) Chest pain: Code(s): R07.9 - Chest pain, unspecified Status: Acute Assessment and Plan: Currently resolved. CP likely due to AI with possibly volume overload vs musculoskeletal pain. ACS less likely. Troponins plateaued. Cardiology consulted by ED and appreciate recommendations. Cardiology rec dialysis yesterday; Nephrology following as well. Patient had 2L removed yesterday. Tolerated dialysis well. D/c home today Monitor for chest pain Patient otherwise clinically looks okay; possible discharge today vs tomorrow (2) Elevated troponin: Code(s): R79.89 - Other specified abnormal findings of blood chemistry Status: Acute Assessment and Plan: Troponin leak is likely secondary to ESRD. Plateaued. ACS unlikely f/u with gas prover (3) Diabetes mellitus: Qualifiers: Diabetes mellitus complication status: without complication Diabetes mellitus rodent exterminator insulin use: with rodent exterminator use Diabetes mellitus type: type 2 Qualified Code(s): E11.9 - Type 2 diabetes mellitus without complications; Z79.4 - superintendent container terminal (current) use of insulin Code(s): E11.9 - Type 2 diabetes mellitus without complications Status: Chronic Assessment and Plan: A1c 6.8 earlier this month. BGL in 200-300s today Accuchecks, SSI Coverage, Hypoglycemic protocol during stay Continue home long acting insulin therapy at discharge (4) ESRD on dialysis: Code(s): N18.6 - End stage renal disease; Z99.2 - Dependence on renal dialysis Status: Chronic Assessment and Plan: Nephrology consultation has been placed; appreciate input Patient had IV lasix per Cardiology rec 2L removed on dialysis yesterday Tolerated well; discharge home today. Recommend follow up with Liquefied Natural Gas Operator and discuss potentially going to dialysis 4 times/week Renal diet/diabetic diet rec (5) CHF (congestive heart failure): Code(s): I50.9 - Heart failure, unspecified Status: Chronic Assessment and Plan: No symptoms reported today. Crackles noted in bases, slight improvement Nephrology following and appreciate recommendation Dialysis yesterday Okay for discharge today (6) Chronic anemia: Code(s): D64.9 - Anemia, unspecified Status: Chronic Assessment and Plan: No signs of significant acute blood loss. Monitor H/H transfuse prn. (7) Chronic anticoagulation: Code(s): Z79.01 - half-way (current) use of anticoagulants Status: Chronic Assessment and Plan: INR 4.1 Hold coumadin tonight; resume tomorrow Monitor PT/INR on 03/14 F/u with Machine Overhauler at [facility] after discharge (8) Supratherapeutic INR: Code(s): R79.1 - Abnormal coagulation profile Status: Acute Assessment and Plan: See above a/p DS: Summary Hospital Course Reason for hospitalization: Chest pain, elevated troponin, ACS r/o Hospital Course: Patient is a 39 yo diabetic F with history of chronic coumadin therapy, ESRD on dialysis (MWF) and previous cardiac arrest who presented to the hospital on 03/09 with a complaint of left sided chest pain that started around 4 pm on 03/09 when she came home from dialysis. The pain was constant and lasted several hours, and did not report associated nausea, vomiting, or diaphoresis. She had reported having a high sodium diet as of recently. While in the ED, she was found to have mildly elevated troponin concerning for ACS. Patient admitted under this setting. Please see H&P for further details
[2020-03-11] MEDS: QUEtiapine FUMARATE 25 MG TABLET 75 MG PO (08:33)
[2020-03-11] MEDS: DOCUSATE SODIUM 100 MG CAPSULE PO (08:33)
[2020-03-11] MEDS: CALCIUM CARBONATE (TUMS) 500 MG (200 MG ELEMENTAL) 400 MG PO (08:33)
[2020-03-11] MEDS: ERGOCALCIFEROL 50,000 UNIT CAPSULE 50000 UNITS PO (08:34)
[2020-03-11] MEDS: NORTRIPTYLINE HCL 10 MG CAPSULE PO (08:34)
[2020-03-11] MEDS: ATORVASTATIN 20 MG TABLET PO (08:34)
[2020-03-11] MEDS: CITALOPRAM HYDROBROMIDE 20 MG TABLET PO (08:34)
[2020-03-11] MEDS: busPIRone HCL 5 MG TABLET PO (08:34)
[2020-03-11] MEDS: ASPIRIN 81 MG ENTERIC TABLET PO (08:34)
[2020-03-11] MEDS: SEVELAMER CARBONATE 800 MG TABLET 1600 MG PO (08:34)
[2020-03-11 08:35] VITALS: PULSE 73
[2020-03-11] MEDS: INSULIN ASPART (*BKC) 100 UNITS/ML SUB-Q (08:35)
[2020-03-11] MEDS: METOPROLOL SUCCINATE EXT REL 12.5 MG TABCR PO (08:35)
--- NOTE | 2020-03-11 09:47 | PM.PNNEP ---
Progress Note: A&P Assessment and Plan (1) ESRD on dialysis: Code(s): N18.6 - End stage renal disease; Z99.2 - Dependence on renal dialysis Status: Chronic Assessment and Plan: Beatrice has end-stage renal disease. She had duf yesterday. She did well. Volume status looks better. (2) CHF (congestive heart failure): Code(s): I50.9 - Heart failure, unspecified Status: Chronic Assessment and Plan: The patient has valvular heart disease. Trying to keep as much fluid off as possible. She will get dialysis tomorrow in her home clinic (3) Diabetes mellitus: Qualifiers: Diabetes mellitus type: type 2 Diabetes mellitus regional intermodal truck driver insulin use: with regional intermodal truck driver use Diabetes mellitus complication status: without complication Qualified Code(s): E11.9 - Type 2 diabetes mellitus without complications; Z79.4 - remote computer terminal operator (current) use of insulin Code(s): E11.9 - Type 2 diabetes mellitus without complications Status: Chronic Assessment and Plan: The patient has diabetes. Hospitalists are watching her sugars. Subjective Date/time seen: 03/11/20 09:47 Interval history: Patient is alert. She feels Well. No chest pain or shortness of breath. Review of Systems Cardiovascular: Cardiovascular: Reports no additional cardiovascular complaints Respiratory: Respiratory: Reports no additional respiratory complaints Gastrointestinal: Gastrointestinal: Reports no additional gastrointestinal complaints Genitourinary: Genitourinary: Reports no additional female genitourinary complaints Exam Narrative: Exam Narrative: WDWN in NAD skin no rash head ncat lungs clear cor reg no rub abd BS+ nontender and soft ext no edema. Objective Data Vital Signs Vital Signs: Vital Signs - 24 hr 03/10/20 10:00 03/10/20 12:00 03/10/20 13:35 Temperature 36.6 C Pulse Rate 88 76 80 Respiratory Rate 16 12 Blood Pressure 109/74 115/53 L Pulse Oximetry 100 03/10/20 13:46 03/10/20 14:00 03/10/20 14:15 Temperature Pulse Rate 77 79 82 Respiratory Rate Blood Pressure 119/66 110/54 L 106/52 L Pulse Oximetry 03/10/20 14:26 03/10/20 14:30 03/10/20 14:45 Temperature Pulse Rate 84 81 82 Respiratory Rate Blood Pressure 106/50 L 112/52 L Pulse Oximetry 03/10/20 15:00 03/10/20 15:15 03/10/20 15:30 Temperature Pulse Rate 78 79 78 Respiratory Rate Blood Pressure 101/52 L 111/51 L 111/51 L Pulse Oximetry 03/10/20 15:45 03/10/20 15:46 03/10/20 15:55 Temperature 36.7 C Pulse Rate 77 76 76 Respiratory Rate 14 Blood Pressure 105/53 L 109/53 L 113/55 L Pulse Oximetry 03/10/20 16:00 03/10/20 18:20 03/10/20 19:30 Temperature 36.5 C 36.0 C L Pulse Rate 72 85 77 Respiratory Rate 16 18 Blood Pressure 116/31 L 105/42 L Pulse Oximetry 96 96 03/10/20 20:00 03/10/20 22:00 03/10/20 23:22 Temperature 36.1 C L Pulse Rate 79 96 118 H Respiratory Rate 18 18 Blood Pressure 127/49 L Pulse Oximetry 96 96 03/11/20 00:00 03/11/20 02:00 03/11/20 04:00 Temperature 36.0 C L Pulse Rate 79 84 78 Respiratory Rate 18 16 Blood Pressure 110/56 L Pulse Oximetry 96 96 03/11/20 06:00 03/11/20 08:00 03/11/20 08:35 Temperature 36.1 C L Pulse Rate 74 73 73 Respiratory Rate 16 Blood Pressure 135/88 Pulse Oximetry 94 Intake/Output Intake/Output: Intake & Output 03/08/20 03/09/20 03/10/20 03/11/20 23:59 23:59 23:59 23:59 Intake Total 6 740 Output Total 1999 Balance 96 740 Meds/Results Medications: Active Medications Generic Name Dose Route Start Last Admin Trade Name Freq PRN Reason Stop Dose Admin Acetaminophen 650 mg 03/10/20 05:15 03/11/20 00:25 Tylenol Tablet PO 650 mg Q6H PRN Administration Mild Pain (1-3) or Fever Aspirin 81 mg 03/10/20 09:00 03/11/20 08:34 Aspirin Ec PO 81 mg DAILY SALOMON Administration Atorvastatin Calcium 20 mg
--- NOTE | 2020-03-11 09:49 | PM.PNCARD ---
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 Her prior care has been in [place]. She is undergoing evaluation for possible further intervention for AI. No tmaking urine and no response to lasix, had dialysis yesterday and 2 L negative, but still volume overloaded. Plan D/C metoprolol and use vasodilator as preferred agent for BP control, consider more dialysis and UF (3 L) today or tomorrow, warfarin, Need close f/u with [place] to evaluate option for valve surgery.. Subjective Date/time seen: 03/11/20 09:49 Interval history: No acute events Feels better with no chest pain or SOB Review of Systems Review of Systems: All systems reviewed & are unremarkable except as noted in HPI and below Exam Neck: Neck: supple Other: JVD + angle of Jaw Resp: Effort & Inspection: normal respiratory effort Auscultation: clear to auscultation bilaterally Cardio: Rate: regular rate Rhythm: regular rhythm Heart sounds: Murmur heart sound present Other: ESM and EDM at base Objective Data Vital Signs Vital Signs: Vital Signs - 24 hr 03/10/20 10:00 03/10/20 12:00 03/10/20 13:35 Temperature 36.6 C Pulse Rate 88 76 80 Respiratory Rate 16 12 Blood Pressure 109/74 115/53 L Pulse Oximetry 100 03/10/20 13:46 03/10/20 14:00 03/10/20 14:15 Temperature Pulse Rate 77 79 82 Respiratory Rate Blood Pressure 119/66 110/54 L 106/52 L Pulse Oximetry 03/10/20 14:26 03/10/20 14:30 03/10/20 14:45 Temperature Pulse Rate 84 81 82 Respiratory Rate Blood Pressure 106/50 L 112/52 L Pulse Oximetry 03/10/20 15:00 03/10/20 15:15 03/10/20 15:30 Temperature Pulse Rate 78 79 78 Respiratory Rate Blood Pressure 101/52 L 111/51 L 111/51 L Pulse Oximetry 03/10/20 15:45 03/10/20 15:46 03/10/20 15:55 Temperature 36.7 C Pulse Rate 77 76 76 Respiratory Rate 14 Blood Pressure 105/53 L 109/53 L 113/55 L Pulse Oximetry 03/10/20 16:00 03/10/20 18:20 03/10/20 19:30 Temperature 36.5 C 36.0 C L Pulse Rate 72 85 77 Respiratory Rate 16 18 Blood Pressure 116/31 L 105/42 L Pulse Oximetry 96 96 03/10/20 20:00 03/10/20 22:00 03/10/20 23:22 Temperature 36.1 C L Pulse Rate 79 96 118 H Respiratory Rate 18 18 Blood Pressure 127/49 L Pulse Oximetry 96 96 03/11/20 00:00 03/11/20 02:00 03/11/20 04:00 Temperature 36.0 C L Pulse Rate 79 84 78 Respiratory Rate 18 16 Blood Pressure 110/56 L Pulse Oximetry 96 96 03/11/20 06:00 03/11/20 08:00 03/11/20 08:35 Temperature 36.1 C L Pulse Rate 74 73 73 Respiratory Rate 16 Blood Pressure 135/88 Pulse Oximetry 94 Intake/Output Intake/Output: Intake & Output 03/08/20 03/09/20 03/10/20 03/11/20 23:59 23:59 23:59 23:59 Intake Total 2096 740 Output Total 1999 Balance 96 740 Meds/Results Medications: Active Medications Generic Name Dose Route Start Last Admin Trade Name Freq PRN Reason Stop Dose Admin Acetaminophen 650 mg 03/10/20 05:15 03/11/20 00:25 Tylenol Tablet PO 650 mg Q6H PRN Administration Mild Pain (1-3) or Fever Aspirin 81 mg 03/10/20 09:00 03/11/20 08:34 Aspirin Ec PO 81 mg DAILY SALOMON Administration Atorvastatin Calcium 20 mg 03/10/20 09:00 03/11/20 08:34 Lipitor PO 20 mg DAILY SALOMON Administration Buspirone HCl 5 mg 03/10/20 09:00 03/11/20 08:34 Buspar PO 5 mg TID SALOMON Administration Calcium Carbonate 400 mg 03/10/20 09:00 03/11/20 08:33 Tums PO 400 mg DAILY SALOMON Administration Citalopram Hydrobromide 20 mg 03/10/20 09:00 03/11/20 08:34 Celexa PO 20 mg DAILY SALOMON Administration Dextrose 12.5 gm 03/10/20 01:07 Dextrose 50% Syringe IV PUSH PRN PRN Hypoglycemia Protocol Docusate Sodium 100 mg 03/10/20 09:00 03/11/20 08:33 Colace Capsule PO 100 mg BID SALOMON Administration Ergocalciferol 50,000 unit
--- NOTE | 2020-03-11 10:00 | PM.PNCARD ---
Subjective Date/time seen: 03/11/20 10:00 Objective Data Vital Signs Vital Signs: Vital Signs - 24 hr 03/10/20 12:00 03/10/20 13:35 03/10/20 13:46 Temperature 36.6 C Pulse Rate 76 80 77 Respiratory Rate 16 12 Blood Pressure 109/74 115/53 L 119/66 Pulse Oximetry 100 03/10/20 14:00 03/10/20 14:15 03/10/20 14:26 Temperature Pulse Rate 79 82 84 Respiratory Rate Blood Pressure 110/54 L 106/52 L Pulse Oximetry 03/10/20 14:30 03/10/20 14:45 03/10/20 15:00 Temperature Pulse Rate 81 82 78 Respiratory Rate Blood Pressure 106/50 L 112/52 L 101/52 L Pulse Oximetry 03/10/20 15:15 03/10/20 15:30 03/10/20 15:45 Temperature Pulse Rate 79 78 77 Respiratory Rate Blood Pressure 111/51 L 111/51 L 105/53 L Pulse Oximetry 03/10/20 15:46 03/10/20 15:55 03/10/20 16:00 Temperature 36.7 C 36.5 C Pulse Rate 76 76 72 Respiratory Rate 14 16 Blood Pressure 109/53 L 113/55 L 116/31 L Pulse Oximetry 96 03/10/20 18:20 03/10/20 19:30 03/10/20 20:00 Temperature 36.0 C L Pulse Rate 85 77 79 Respiratory Rate 18 18 Blood Pressure 105/42 L Pulse Oximetry 96 96 03/10/20 22:00 03/10/20 23:22 03/11/20 00:00 Temperature 36.1 C L Pulse Rate 96 118 H 79 Respiratory Rate 18 18 Blood Pressure 127/49 L Pulse Oximetry 96 96 03/11/20 02:00 03/11/20 04:00 03/11/20 06:00 Temperature 36.0 C L Pulse Rate 84 78 74 Respiratory Rate 16 Blood Pressure 110/56 L Pulse Oximetry 96 03/11/20 08:00 03/11/20 08:35 Temperature 36.1 C L Pulse Rate 73 73 Respiratory Rate 16 Blood Pressure 135/88 Pulse Oximetry 94 Intake/Output Intake/Output: Intake & Output 03/08/20 03/09/20 03/10/20 03/11/20 23:59 23:59 23:59 23:59 Intake Total 4987 740 Output Total 1999 Balance 96 740 Meds/Results Medications: Active Medications Generic Name Dose Route Start Last Admin Trade Name Freq PRN Reason Stop Dose Admin Acetaminophen 650 mg 03/10/20 05:15 03/11/20 00:25 Tylenol Tablet PO 650 mg Q6H PRN Administration Mild Pain (1-3) or Fever Aspirin 81 mg 03/10/20 09:00 03/11/20 08:34 Aspirin Ec PO 81 mg DAILY [place]OMON Administration Atorvastatin Calcium 20 mg 03/10/20 09:00 03/11/20 08:34 Lipitor PO 20 mg DAILY [place]OMON Administration Buspirone HCl 5 mg 03/10/20 09:00 03/11/20 08:34 Buspar PO 5 mg TID SALOMON Administration Calcium Carbonate 400 mg 03/10/20 09:00 03/11/20 08:33 Tums PO 400 mg DAILY [place]OMON Administration Citalopram Hydrobromide 20 mg 03/10/20 09:00 03/11/20 08:34 Celexa PO 20 mg DAILY [place]OM[place] Administration Dextrose 12.5 gm 03/10/20 01:07 Dextrose 50% Syringe IV PUSH PRN PRN Hypoglycemia Protocol Docusate Sodium 100 mg 03/10/20 09:00 03/11/20 08:33 Colace Capsule PO 100 mg BID [place]OM[place] Administration Ergocalciferol 50,000 unit 03/11/20 09:00 03/11/20 08:34 Drisdol PO 50,000 unit Sy@0900 [place]OMON Administration Glucagon 1 mg 03/10/20 01:07 Glucagon For Inj IM PRN PRN Hypoglycemia Protocol Glucose 15 gm 03/10/20 01:07 Glutose 15 PO PRN PRN Hypoglycemia Protocol Dextrose 1,000 mls @ 100 mls/hr 03/10/20 01:07 Dextrose 5% 1,000 Ml IVPB PRN PRN Hypoglycemia Protocol Insulin Aspart 3 - 6 units 03/10/20 08:00 03/11/20 08:35 Novolog SUB-Q 4 units TIDWM SALOMON Administration Protocol Insulin Glargine 12 units 03/10/20 18:00 03/10/20 17:26 Lantus SUB-Q 12 units QPM [place]OM[place] Administration Lisinopril 5 mg 03/11/20 09:55 Prinivil PO QAM [place]OM[place] Loratadine 10 mg 06/20/20 04:09 03/10/20 20:58 Claritin PO 10 mg Q48H PRN Administration Allergic Reaction Metoprolol Succinate 12.5 mg 03/10/20 17:00 Toprol Xl PO [id number]@1700 [place] Nortriptyline HCl 10 mg 03/10/20 09:00 03/11/20 08:34 Pamelor PO 10 mg DAILY [place] Administration Ondans
[2020-03-11] MEDS: lisinopriL 5 MG TABLET PO (11:03)
== END 2020-03-11 11:20 | disposition home or self-care (01) ==
LOC: ANHED 03-10 00:31 → ANHIMU 03-10 01:30
PROVIDERS: Internal Medicine Nephrology; Admitting Provider Family Medicine; Emergency Provider General Practice; PCP Family Medicine; Visit Provider Physician Assistant
DX: R07.89 Other chest pain (principal); R79.89 Other specified abnormal findings of blood chemistry; I08.2 Rheumatic disorders of both aortic and tricuspid valves; I44.2 Atrioventricular block, complete; I50.9 Heart failure, unspecified; E11.22 Type 2 diabetes mellitus with diabetic chronic kidney disease; N18.6 End stage renal disease; Z99.2 Dependence on renal dialysis; N25.0 Renal osteodystrophy; D64.9 Anemia, unspecified; Z79.01 Long term (current) use of anticoagulants; Z79.4 Long term (current) use of insulin; Z79.82 Long term (current) use of aspirin; Z79.899 Other long term (current) drug therapy; Z86.74 Personal history of sudden cardiac arrest; Z95.0 Presence of cardiac pacemaker; Z95.4 Presence of other heart-valve replacement
CPT/HCPCS: 36415; 71045; 80048; 80061; 80069; 83735; 83880; 84484; 85025; 85027; 85055; 85610; 85730; 86706; 87340; 93005; 96374; 96375; 99285; A9270; G0257; G0378; J1815; J2270; J2405; J7030

== ENCOUNTER 2020-04-23 11:00 | Outpatient (CLI) | payer MEDICARE, MEDICAID, SELFPAY ==
[2020-04-23 19:46] LABS: SARS-CoV-2 RNA PCR Negative
== END 2020-04-23 11:01 | disposition home or self-care (01) ==
LOC: CHSLAB 11:04
PROVIDERS: PCP Family Medicine; Visit Provider Family Medicine
DX: R50.9 Fever, unspecified (principal)
CPT/HCPCS: 87635; C9803; U0003

== ENCOUNTER 2020-04-23 11:06 | Emergency (ER) | payer MEDICARE, MEDICAID, SELFPAY ==
--- NOTE | ~2020-04-23 | XR_ITS ---
EXAMINATION: [id number] INDICATION: Right rib pain TECHNIQUE: A frontal view of the chest and 3 views of the right ribs were obtained. COMPARISON: 03/09/2020 FINDINGS: There is stable cardiomegaly. Changes of cardiac valve surgery are noted. A left brachiocep halic vein stent is noted. The lungs are free of acute opacities. There is no pleural effusion or pne umothorax. No displaced rib fracture is identified. A cardiac loop recorder is implanted in the left chest wall. IMPRESSION: 1. No evidence of displaced rib fracture. 2. Stable cardiomegaly. Reviewed, dictated and finalized at location A.
[2020-04-23 11:20] VITALS: BP 124/51; PULSE 89; RESP 16; TEMP 36.8; O2SAT 99
--- NOTE | 2020-04-23 11:31 | ED.FALL ---
HPI - Fall General Chief Complaint: Fall Stated Complaint: rib pain Time Seen by Provider: 04/23/20 11:31 Source: patient Mode of arrival: ambulatory Limitations: no limitations History of Present Illness HPI Narrative: 39-year-old woman with end-stage liver disease, congestive heart failure, and valvular disease comes in today complaining of right-sided rib pain And fever that started 3 days ago. Family member states that they are her fall 3 nights ago and found her room in disarray afterwards. She has since been complaining of rib pain. Family also states that she had a fever of 103.3 ? F the day after. She has been afebrile since except for a temperature of 101? yesterday. She has had no cough, shortness breath, chest pain, vomiting, diarrhea, dysuria, hematuria, or sick exposures. Dr. Hernández ordered a SARS-CoV-2 test outpatient and we will obtain that sample here today. complaint: fall Onset (ago): day(s) (3) Fall from: standing Fall witnessed: no Place fall occurred: home Loss of consciousness: unsure Prolonged down time: no Symptoms prior to fall: none Location of injury: chest Severity: moderate Quality: sharp Related Data Home Medications Medication Instructions Recorded Confirmed Lantus U-100 Insulin 12 unit SUBCUT QPM 03/09/20 03/10/20 aspirin [Adult Low Dose Aspirin] 81 mg PO DAILY 03/09/20 03/10/20 atorvastatin 20 mg PO DAILY 03/09/20 03/10/20 buspirone 5 mg PO TID 03/09/20 03/10/20 citalopram 20 mg PO DAILY 03/09/20 03/10/20 docusate sodium [Colace] 100 mg PO BID 03/09/20 03/10/20 furosemide 60 mg PO DAILY 03/09/20 03/10/20 insulin lispro [Humalog KwikPen See Protocol SUBCUT TID 03/09/20 03/10/20 Insulin] midodrine See Rx Instructions .ROUTE .COMPLEX 03/09/20 03/10/20 nortriptyline 10 mg PO DAILY 03/09/20 03/10/20 pantoprazole 40 mg PO HS 03/09/20 03/10/20 quetiapine 75 mg PO DAILY 03/09/20 03/10/20 ropinirole 1 mg PO BID 03/09/20 03/10/20 sevelamer HCl 1,600 mg PO TID 03/09/20 03/10/20 calcium carbonate 1,000 mg PO DAILY 03/10/20 03/10/20 ergocalciferol (vitamin D2) 1,250 mcg PO WEEKLY 03/10/20 03/10/20 loratadine [Claritin] 10 mg PO EVERY OTHER DAY PRN 03/10/20 03/10/20 metoprolol succinate 12.5 mg PO BID 03/10/20 03/10/20 warfarin [Coumadin] 8 mg PO DAILY 03/10/20 03/10/20 Allergies Allergy/AdvReac Type Severity Reaction Status Date / Time latex Allergy Intermediate Hives / Verified 06/21/19 14:55 Red Face oxycodone Allergy Intermediate Nausea and Verified 06/21/19 14:55 Vomiting Sulfa (Sulfonamide Allergy Unknown Verified 07/26/17 14:33 Antibiotics) Review of Systems Constitutional: Constitutional: Denies chills and Denies fever(s) Eyes: Eyes: Denies change in vision and Denies photophobia ENT: Denies dysphagia, Denies nasal congestion and Denies sore throat Cardiovascular: Cardiovascular: Denies chest pain and Denies radiating jaw, neck or arm pain Respiratory: Respiratory: Denies cough, Denies dyspnea and Denies wheezing Gastrointestinal: Gastrointestinal: Denies abdominal pain, Denies diarrhea, Denies nausea and Denies vomiting Genitourinary: Genitourinary: Denies hematuria and Denies dysuria Musculoskeletal: Musculoskeletal: Reports as per HPI, Reports back pain, Denies arthralgias and Denies joint swelling Integumentary/Breasts: Skin/Breast: Denies pruritus, Denies erythema and Denies rash Neurologic: Denies vertigo, Denies dizziness and Denies syncope Hematologic/Lymphatic: Hematologic/Lymphatic: Denies easy bleeding and Denies easy bruising Allergic/Immunologic: Allergic/Immunologic: Denies lip swelling and Denies wheezing PMFSH Past Medical History Medical History CHF (congestive heart failure) Chronic anemia Diabetes mellitus Endocarditis ESRD on dialysis Surgical History Surgical History History of heart valve repair Pacemak
[2020-04-23 12:46] VITALS: RESP 20
== END 2020-04-23 12:47 | disposition home or self-care (01) ==
PROVIDERS: Emergency Provider Emergency Medicine; PCP Family Medicine
DX: R50.9 Fever, unspecified (principal); S22.31XA Fracture of one rib, right side, initial encounter for closed fracture; W19.XXXA Unspecified fall, initial encounter; E11.9 Type 2 diabetes mellitus without complications; Z79.4 Long term (current) use of insulin
CPT/HCPCS: 71101; 87635; 99282; 99283; C9803; U0003

== ENCOUNTER 2020-04-26 10:21 | Outpatient (CLI) | payer MEDICARE, MEDICAID, SELFPAY ==
--- NOTE | ~2020-04-26 | XR_ITS ---
XR chest 2V DATE: 04/26/2020 11:13 INDICATION: Cough, left chest pain following fall from bed TECHNIQUE: 2 views COMPARISON: 03/09/2020 portable AP chest at 2228 hours FINDINGS: Status post sternotomy and aortic valve replacement. An implanted chair inspector and leveler device ov erlies the left chest. There is a vascular stent overlying the left brachiocephalic vessels. Borderline heart size. Small pleural effusions. Mild atelectasis at the right lung base. The lungs otherwise appear clear. N o pneumothorax. Chronic changes at left clavicular joint including possible surgical resection, fracture or osteolysi s of the distal left clavicle, separation of the clavicle and acromion process.. IMPRESSION: Status post sternotomy and aortic valve replacement Small pleural effusions and mild atelectasis at the right lung base Reviewed, dictated and finalized at location B.
[2020-04-26 10:38] LABS: Basophils Absolute Auto 0.03 K/mm3 (0.00-0.10); Basophils Percent Auto 0.2 % (0.0-1.0); Eosinophils Absolute Auto 0.04 K/mm3 (0.02-0.50); Eosinophils Percent Auto 0.2 % (1.0-6.0); Hematocrit 30.4 % (35.0-49.0); Hemoglobin 9.5 g/dL (12.0-15.0); Immature Granulocyte Absolute 0.14 K/mm3 (0.00-0.00); Immature Granulocyte Percent A 0.7 % (0.0-0.0); Lymphocytes Absolute Auto 0.46 K/mm3 (1.10-4.50); Lymphocytes Percent Auto 2.4 % (18.0-42.0); Mean Corpuscular HGB Conc 31.3 g/dL (32.0-36.0); Mean Corpuscular Hemoglobin 30.4 pg (27.0-31.0); Mean Corpuscular Volume 97.4 fL (78.0-102.0); Mean Platelet Volume 12.8 fl (9.2-11.8); Monocytes Absolute Auto 0.63 K/mm3 (0.10-0.90); Monocytes Percent Auto 3.3 % (2.0-11.0); Neutrophils Absolute Auto 17.8 K/mm3 (1.7-7.2); Neutrophils Percent Auto 93.2 % (50.0-70.0); Platelet Count Result 355 K/mm3 (150-420); Red Blood Count 3.12 M/mm3 (4.20-5.40); Red Cell Distribution Width 18.6 % (11.6-14.4); White Blood Count 19.1 K/mm3 (4.8-10.8)
[2020-04-26 11:11] LABS: Alanine Aminotransferase 24 U/L (14-59); Albumin Level 1.9 g/dL (3.4-5.0); Alkaline Phosphatase 253 U/L (46-116); Aspartate Amino Transferase 33 U/L (15-37); Bilirubin,Total 0.7 mg/dL (0.00-1.00); Blood Urea Nitrogen 34 mg/dL (7-18); Calcium 8.7 mg/dL (8.5-10.1); Carbon Dioxide 29 mmol/L (21-32); Chloride 95 mmol/L (98-108); Creatine Kinase 125 U/L (26-192); Estimated Glomerular Filt Rate 12; Glucose 154 mg/dL (70-99); Osmolality Calculated 282 mOsm/kg (285-295); Sodium 131 mmol/L (136-145); Total Protein 6.5 g/dL (6.4-8.2); Troponin I 0.04 ng/mL (0.00-0.056)
[2020-04-27 13:33] LABS: Add Urine Microscopic? YES; Appearance Urine Cloudy (Clear); Bilirubin Urine 1+ (Negative); Blood Urine 2+ (Negative); Color Urine Amber (Yellow); Glucose Urine UA Negative (Negative); Ketones Urine Negative (Negative); Leukocyte Esterase Ur 1+ (Negative); Nitrate Urine Negative (Negative); Protein Urine Negative (Negative); Urobilinogen Urine 0.2 mg/dL (0.2-1.0)
[2020-04-27 13:40] LABS: RBC Urine 21-50 /hpf (0-2)
[2020-04-27 13:41] LABS: Bacteria Urine 4+ /hpf; Budding Yeast Urine Present /hpf; Squamous Epithelial Cell Urine Many /hpf (Few)
== END 2020-04-26 10:22 | disposition home or self-care (01) ==
LOC: CHSLAB 10:25
PROVIDERS: PCP Family Medicine; Visit Provider Family Medicine
DX: R05 Cough (principal); R50.9 Fever, unspecified; N18.6 End stage renal disease
CPT/HCPCS: 36415; 71046; 80053; 81001; 82550; 82553; 84484; 85025; 87040; 87077; 87086; 87088

== ENCOUNTER 2020-05-21 11:50 | Outpatient (CLI) | payer MEDICARE, SELFPAY ==
[2020-05-21 12:02] LABS: Basophils Absolute Auto 0.11 K/mm3 (0.00-0.10); Basophils Percent Auto 1.3 % (0.0-1.0); Eosinophils Absolute Auto 0.18 K/mm3 (0.02-0.50); Eosinophils Percent Auto 2.2 % (1.0-6.0); Hematocrit 27.2 % (35.0-49.0); Hemoglobin 8.3 g/dL (12.0-15.0); Immature Granulocyte Absolute 0.11 K/mm3 (0.00-0.00); Immature Granulocyte Percent A 1.3 % (0.0-0.0); Lymphocytes Absolute Auto 0.59 K/mm3 (1.10-4.50); Lymphocytes Percent Auto 7.1 % (18.0-42.0); Mean Corpuscular HGB Conc 30.5 g/dL (32.0-36.0); Mean Corpuscular Hemoglobin 30.6 pg (27.0-31.0); Mean Corpuscular Volume 100.4 fL (78.0-102.0); Mean Platelet Volume 10.7 fl (9.2-11.8); Monocytes Absolute Auto 0.48 K/mm3 (0.10-0.90); Monocytes Percent Auto 5.8 % (2.0-11.0); Neutrophils Absolute Auto 6.8 K/mm3 (1.7-7.2); Neutrophils Percent Auto 82.3 % (50.0-70.0); Platelet Count Result 401 K/mm3 (150-420); Red Blood Count 2.71 M/mm3 (4.20-5.40); Red Cell Distribution Width 20.5 % (11.6-14.4); White Blood Count 8.3 K/mm3 (4.8-10.8)
[2020-05-21 12:17] LABS: Hemoglobin A1C 7.9 % (<5.7)
[2020-05-21 13:06] LABS: Alanine Aminotransferase 19 U/L (14-59); Albumin Level 1.9 g/dL (3.4-5.0); Alkaline Phosphatase 291 U/L (46-116); Anion Gap 5 mmol/L (8-16); Aspartate Amino Transferase 28 U/L (15-37); Bilirubin,Total 0.6 mg/dL (0.00-1.00); Blood Urea Nitrogen 62 mg/dL (7-18); Calcium 8.5 mg/dL (8.5-10.1); Carbon Dioxide 31 mmol/L (21-32); Chloride 98 mmol/L (98-108); Estimated Glomerular Filt Rate 8; Glucose 131 mg/dL (70-99); Osmolality Calculated 297 mOsm/kg (285-295); Potassium 5.6 mmol/L (3.5-5.1); Sodium 134 mmol/L (136-145); Thyroid Stimulating Hormone 10.97 uIU/mL (0.36-3.74); Total Protein 5.7 g/dL (6.4-8.2)
== END 2020-05-21 11:51 | disposition home or self-care (01) ==
LOC: CHSLAB 11:52
PROVIDERS: PCP Family Medicine; Visit Provider Family Medicine
DX: E10.42 Type 1 diabetes mellitus with diabetic polyneuropathy (principal)
CPT/HCPCS: 36415; 80053; 83036; 84443; 85025

== ENCOUNTER 2020-06-05 12:19 | Outpatient (CLI) | payer MEDICARE, SELFPAY ==
[2020-06-06 14:25] LABS: SARS-CoV-2 RNA PCR Negative
== END 2020-06-05 12:20 | disposition home or self-care (01) ==
PROVIDERS: PCP Family Medicine
DX: Z01.812 Encounter for preprocedural laboratory examination (principal); T82.0 Mechanical complication of heart valve prosthesis; Z20.828 Contact with and (suspected) exposure to other viral communicable diseases
CPT/HCPCS: 87635; C9803; U0003

== ENCOUNTER 2020-06-19 14:23 | Outpatient (CLI) | payer MEDICARE, MEDICAID, SELFPAY ==
--- NOTE | ~2020-06-19 | US_ITS ---
EXAMINATION: US arterial ankle brachial ind DATE: 06/19/2020 15:45 INDICATION: Peripheral vascular disease TECHNIQUE: Segmental pressures and plethysmographic and Doppler waveforms of the brachial and lower e xtremity arteries were obtained. COMPARISON: None. FINDINGS: Right brachial artery pressure of 99 mm Hg. The left brachial artery pressure was unable to be obtain ed due to the presence of a dialysis access the left upper arm. The right ankle-brachial index (AMY) is 1.68 (normal >= 0.9-1.0). The right great toe-brachial index (TBI) is 0.78 (normal >= 0.65). Arterial Doppler waveforms are biphasic with brisk systolic upstrokes at both the right posterior tibial and dorsalis pedis arteries. The left AMY is 1.79. The right AMY is 1.15 Arterial Doppler waveforms are biphasic at the left poste rior tibial artery and monophasic at the left dorsalis pedis artery, both with brisk systolic upstrok es. IMPRESSION: 1. No significant arterial occlusive disease in either lower limb with normal bilateral ABIs and TBIs . Reviewed, dictated and finalized at location A. IMPRESSION: 1. No significant arterial occlusive disease in either lower limb with normal b ilateral ABIs and TBIs.
== END 2020-06-19 14:24 | disposition home or self-care (01) ==
LOC: CHSIMG 14:24
PROVIDERS: PCP Family Medicine; Visit Provider Family Medicine
DX: I73.9 Peripheral vascular disease, unspecified (principal)
CPT/HCPCS: 93922

== ENCOUNTER 2020-08-14 10:06 | Outpatient (CLI) | payer MEDICARE, MEDICAID, SELFPAY ==
--- NOTE | ~2020-08-14 | MM_ITS ---
EXAMINATION: MM screening mariia BI w suellen HISTORY: Screening mammogram TECHNIQUE: Craniocaudal and mediolateral oblique 3-D tomosynthesis images were obtained and synthetic 2-D images were generated. CAD analysis was submitted and interpreted. COMPARISON: No prior mammogram is available for comparison at this institution. BREAST PARENCHYMAL COMPOSITION: There are scattered areas of fibroglandular density. FINDINGS: There is no evidence of suspicious mass, calcification, or architectural distortion to sugg est malignancy in either breast. There has been no suspicious interval change. IMPRESSION: 1. No mammographic evidence of malignancy. 2. Recommend routine screening mammography in one year. BI-RADS Category 1: Negative Reviewed, dictated and finalized at location A. [employer]
== END 2020-08-14 10:07 | disposition home or self-care (01) ==
LOC: CHSIMG 10:07
PROVIDERS: PCP Family Medicine; Visit Provider Family Medicine
DX: Z12.31 Encounter for screening mammogram for malignant neoplasm of breast (principal)
CPT/HCPCS: 77063; 77067

== ENCOUNTER 2020-08-20 07:55 | Outpatient (CLI) | payer MEDICARE, MEDICAID, SELFPAY ==
--- NOTE | ~2020-08-20 | US_ITS ---
EXAMINATION: US pelvic complete DATE: 08/20/2020 08:58 INDICATION: Frequent and excessive menstruation Comparison:No prior studies for comparison. TECHNIQUE: Multiple transabdominal sonographic images of the pelvis performed. FINDINGS: The uterus measures 5.3 x 2.3 x 3.7 cm. The endometrial complex measures 8 mm. The ovaries are not visualized. There is no free fluid in the pelvis. There are no abnormal masses s een on either side. IMPRESSION: 1. Unremarkable pelvic ultrasound. Reviewed, dictated and finalized at location B. [employer]
== END 2020-08-20 07:56 | disposition home or self-care (01) ==
LOC: CHSIMG 07:58
PROVIDERS: PCP Family Medicine; Visit Provider Family Medicine
DX: N92.1 Excessive and frequent menstruation with irregular cycle (principal)
CPT/HCPCS: 76856

== ENCOUNTER 2020-08-28 09:29 | Outpatient (CLI) | payer MEDICARE, SELFPAY ==
[2020-08-28 10:47] LABS: SARS-CoV-2 Ag Negative (Negative)
== END 2020-08-28 09:30 | disposition home or self-care (01) ==
LOC: CHSLAB 09:31
PROVIDERS: PCP Family Medicine; Visit Provider Family Medicine
DX: Z20.828 Contact with and (suspected) exposure to other viral communicable diseases (principal)
CPT/HCPCS: 87426

== ENCOUNTER 2020-10-24 09:56 | Outpatient (CLI) | payer MEDICARE, SELFPAY ==
[2020-10-25 17:37] LABS: SARS-CoV-2 RNA PCR Negative
== END 2020-10-24 09:57 | disposition home or self-care (01) ==
LOC: CHSLAB 09:58
PROVIDERS: PCP Family Medicine; Visit Provider Family Medicine
DX: Z20.822 Contact with and (suspected) exposure to COVID-19 (principal)
CPT/HCPCS: C9803; U0003; U0005

== ENCOUNTER 2020-11-19 10:37 | Outpatient (CLI) | payer MEDICARE, SELFPAY ==
[2020-11-19 10:56] LABS: Basophils Absolute Auto 0.04 K/mm3 (0.00-0.10); Basophils Percent Auto 0.9 % (0.0-1.0); Eosinophils Absolute Auto 0.44 K/mm3 (0.02-0.50); Hematocrit 30.4 % (35.0-49.0); Hemoglobin 9.5 g/dL (12.0-15.0); Immature Granulocyte Absolute 0.01 K/mm3 (0.00-0.00); Immature Granulocyte Percent A 0.2 % (0.0-0.0); Lymphocytes Absolute Auto 0.67 K/mm3 (1.10-4.50); Lymphocytes Percent Auto 15.2 % (18.0-42.0); Mean Corpuscular HGB Conc 31.3 g/dL (32.0-36.0); Mean Corpuscular Hemoglobin 30.1 pg (27.0-31.0); Mean Corpuscular Volume 96.2 fL (78.0-102.0); Mean Platelet Volume 11.2 fl (9.2-11.8); Monocytes Absolute Auto 0.25 K/mm3 (0.10-0.90); Monocytes Percent Auto 5.7 % (2.0-11.0); Platelet Count Result 145 K/mm3 (150-420); Red Blood Count 3.16 M/mm3 (4.20-5.40); White Blood Count 4.4 K/mm3 (4.8-10.8)
[2020-11-19 11:05] LABS: Hemoglobin A1C 7.1 % (<5.7)
[2020-11-19 12:06] LABS: Anion Gap 10 mmol/L (8-16); Blood Urea Nitrogen 89 mg/dL (7-18); Calcium 9.4 mg/dL (8.5-10.1); Carbon Dioxide 29 mmol/L (21-32); Chloride 98 mmol/L (98-108); Estimated Glomerular Filt Rate 5; Glucose 170 mg/dL (70-99); Osmolality Calculated 315 mOsm/kg (285-295); Potassium 4.9 mmol/L (3.5-5.1); Sodium 137 mmol/L (136-145); Thyroid Stimulating Hormone 1.46 uIU/mL (0.36-3.74)
== END 2020-11-19 10:38 | disposition home or self-care (01) ==
LOC: CHSLAB 10:39
PROVIDERS: PCP Family Medicine; Visit Provider Family Medicine
DX: E10.42 Type 1 diabetes mellitus with diabetic polyneuropathy (principal)
CPT/HCPCS: 36415; 80048; 83036; 84443; 85025

== ENCOUNTER 2020-11-20 12:16 | Outpatient (CLI) | payer MEDICARE, SELFPAY ==
[2020-11-20 12:50] LABS: SARS-CoV-2 Ag Negative (Negative)
== END 2020-11-20 12:17 | disposition home or self-care (01) ==
PROVIDERS: PCP Family Medicine; Visit Provider Family Medicine
DX: Z20.822 Contact with and (suspected) exposure to COVID-19 (principal)
CPT/HCPCS: 87426; C9803

== ENCOUNTER 2021-01-15 13:41 | Outpatient (CLI) | payer MEDICARE, SELFPAY ==
[2021-01-15 14:55] LABS: Free T4 Free Thyroxine 0.58 ng/dL (0.76-1.46); Thyroid Stimulating Hormone 1.88 uIU/mL (0.36-3.74)
== END 2021-01-15 13:42 | disposition home or self-care (01) ==
LOC: CHSLAB 13:44
PROVIDERS: PCP Family Medicine
DX: E03.9 Hypothyroidism, unspecified (principal)
CPT/HCPCS: 36415; 84439; 84443

== ENCOUNTER 2021-05-19 17:54 | Emergency (ER) | payer MEDICARE, MEDICAID, SELFPAY ==
--- NOTE | ~2021-05-19 | CT_ITS ---
EXAMINATION: CT brain wo con DATE: 05/19/2021 18:45 INDICATION: Dizziness, disequilibrium. Headache. Nausea. TECHNIQUE: Computed tomography (CT) of the head was performed without intravenous contrast. The mA wa s adjusted according to patient size. Iterative reconstruction technique was employed. Exam dose: 60 5.33 mGy-cm total exam DLP. COMPARISON: None FINDINGS: There is chronic cerebrovascular infarct high over the right frontoparietal convexity. No intracranial mass lesion or hemorrhage or recent cerebrovascular accident is evident. No midline s hift or mass effect. There is greater than expected central and cortical cerebral and cerebellar atrophy for patient's age of 40 years. No subdural or epidural hematoma. The orbital contents are unremarkable. No fracture or bone destruction of the cranial vault. The mastoid air cells and included paranasal si nuses are unremarkable. IMPRESSION: Chronic high right frontoparietal cerebrovascular accident Greater than expected cerebral and cerebellar atrophy for patient age Reviewed, dictated and finalized at Location [facility]. Reviewed, dictated and finalized at location A.
[2021-05-19 17:54] VITALS: BP 110/65; PULSE 63; RESP 20; TEMP 36.7; O2SAT 97
--- NOTE | 2021-05-19 18:01 | ED.DIZZY ---
HPI - Dizziness General Chief Complaint: Unspecified Stated Complaint: ambulance Time Seen by Provider: 05/19/21 18:00 Source: patient and family Mode of arrival: EMS Limitations: no limitations History of Present Illness HPI Narrative: 40-year-old woman with a history of diabetes, end-stage renal disease on dialysis and mitral valve disease status post valve replacement brought to the emergency department today after she felt nauseated and dizzy. Her evening preprandial blood sugar was 480 and she took 7 units of insulin. She ate dinner and then after dinner her blood sugar was greater than 500. Her blood sugar this morning was over 400 but yesterday her blood sugars were normal (less than 120). She takes Lantus in the evening and sliding-scale lispro AC. She is taking prednisone po and topical steroid for an allergic reaction on her face. She is scheduled to have aortic valve and ascending aorta replacement in a week after finding of aneurism and perivalvular leaking during last weeks procedure. She has dialysis tomorrow. MD elicited complaint: disequilibrium Onset (ago): minute(s) (30) Severity: moderate Description: off-balance Context: other ( Elevated blood sugar) History of similar symptoms: Yes Exacerbating factors: movement/ambulation Relieving factors: nothing Associated symptoms: nausea Related Data Home Medications Medication Instructions Recorded Confirmed Lantus U-100 Insulin 6 unit SUBCUT QPM 03/09/20 05/19/21 aspirin [Adult Low Dose Aspirin] 81 mg PO DAILY 03/09/20 05/19/21 atorvastatin 20 mg PO DAILY 03/09/20 05/19/21 buspirone 5 mg PO TID 03/09/20 05/19/21 citalopram 20 mg PO DAILY 03/09/20 05/19/21 docusate sodium [Colace] 100 mg PO BID 03/09/20 05/19/21 insulin lispro [Humalog KwikPen See Protocol SUBCUT TID 03/09/20 05/19/21 Insulin] midodrine See Rx Instructions .ROUTE .COMPLEX 03/09/20 05/19/21 pantoprazole 40 mg PO HS 03/09/20 05/19/21 quetiapine 50 mg PO DAILY 03/09/20 05/19/21 sevelamer HCl 1,600 mg PO TID 03/09/20 05/19/21 calcium carbonate 1,000 mg PO DAILY 03/10/20 05/19/21 ergocalciferol (vitamin D2) 1,250 mcg PO WEEKLY 03/10/20 05/19/21 loratadine [Claritin] 10 mg PO EVERY OTHER DAY PRN 03/10/20 05/19/21 metoprolol succinate 12.5 mg PO BID 03/10/20 05/19/21 Zyrtec 1 tablet BYMOUTH BID 05/19/21 05/19/21 apixaban [Eliquis] 5 mg PO BID 05/19/21 05/19/21 gabapentin 300 mg PO HS 05/19/21 05/19/21 prednisone 20 mg PO DAILY 05/19/21 05/19/21 torsemide 40 mg PO BID 05/19/21 05/19/21 Allergies Allergy/AdvReac Type Severity Reaction Status Date / Time latex Allergy Intermediate Hives / Verified 02/06/21 11:40 Red Face oxycodone Allergy Intermediate Nausea and Verified 02/06/21 11:40 Vomiting Sulfa (Sulfonamide Allergy Unknown Unknown Verified 05/19/21 18:38 Antibiotics) codeine Allergy Unknown Verified 05/19/21 18:38 ondansetron Allergy Unknown Verified 05/19/21 18:38 vortioxetine Allergy Unknown Verified 05/19/21 18:38 [From [facility]] Review of Systems Review of Systems: All systems reviewed & are unremarkable except as noted in HPI and below Constitutional: Constitutional: Denies chills and Denies fever(s) Eyes: Eyes: Denies change in vision and Denies photophobia ENT: Denies nasal congestion and Denies sore throat Cardiovascular: Cardiovascular: Denies chest pain and Denies radiating jaw, neck or arm pain Respiratory: Respiratory: Denies cough and Denies dyspnea Gastrointestinal: Gastrointestinal: Denies abdominal pain, Reports nausea and Denies vomiting Musculoskeletal: Musculoskeletal: Denies arthralgias and Denies joint swelling Integumentary/Breasts: Skin/Breast: Denies pruritus, Denies erythema and Reports rash (treated with steroids) Neurologic: Denies confusion, Denies vertigo, Reports dizziness, Denies syncope, Reports headache(s) and Denies weakness Hematologic/Lymphatic: Hematologic/Lymphatic: Reports easy bleeding and Reports easy bruising A
[2021-05-19 18:28] LABS: Basophils Absolute Auto 0.05 K/mm3 (0.00-0.10); Basophils Percent Auto 0.5 % (0.0-1.0); Eosinophils Absolute Auto 0.03 K/mm3 (0.02-0.50); Eosinophils Percent Auto 0.3 % (1.0-6.0); Hematocrit 33.3 % (35.0-49.0); Hemoglobin 10.7 g/dL (12.0-15.0); Immature Granulocyte Absolute 0.04 K/mm3 (0.00-0.00); Immature Granulocyte Percent A 0.4 % (0.0-0.0); Lymphocytes Absolute Auto 0.56 K/mm3 (1.10-4.50); Lymphocytes Percent Auto 5.9 % (18.0-42.0); Mean Corpuscular HGB Conc 32.1 g/dL (32.0-36.0); Mean Corpuscular Hemoglobin 31.4 pg (27.0-31.0); Mean Corpuscular Volume 97.7 fL (78.0-102.0); Mean Platelet Volume 11.8 fl (9.2-11.8); Monocytes Percent Auto 5.3 % (2.0-11.0); Neutrophils Absolute Auto 8.3 K/mm3 (1.7-7.2); Neutrophils Percent Auto 87.6 % (50.0-70.0); Platelet Count Result 199 K/mm3 (150-420); Red Blood Count 3.41 M/mm3 (4.20-5.40); Red Cell Distribution Width 13.2 % (11.6-14.4); White Blood Count 9.5 K/mm3 (4.8-10.8)
--- NOTE | 2021-05-19 18:36 | ECG_ITS ---
Measurements Intervals [place] Rate: 64 P: DC: 0 QRS: -49 QRSD: 161 T: 90 QT: 495 QTc: 514 Interpretive Statements ATRIAL SENSE- ELECTRONIC VENTRICULAR PACEMAKER WITH INHIBITION FUSION COMPLEX MARKED FIRST DEGREE AV BLOCK RIGHT BUNDLE BRANCH BLOCK BASELINE ARTIFACT- I, II, AVR, AVL NO FURTHER INTERPRETATION IS POSSIBLE ABNORMAL ECG Electronically Signed On 05-20-2021 6:10:33 CDT by Polo Acosta D.O.
[2021-05-19 18:42] LABS: Alanine Aminotransferase 26 U/L (14-59); Albumin Level 3.6 g/dL (3.4-5.0); Alkaline Phosphatase 187 U/L (46-116); Anion Gap 12 mmol/L (8-16); Aspartate Amino Transferase 11 U/L (15-37); Bilirubin,Total 0.5 mg/dL (0.00-1.00); Blood Urea Nitrogen 84 mg/dL (7-18); Calcium 8.6 mg/dL (8.5-10.1); Carbon Dioxide 24 mmol/L (21-32); Chloride 97 mmol/L (98-108); Estimated Glomerular Filt Rate 6; Glucose 395 mg/dL (70-99); Magnesium 1.9 mg/dL (1.8-2.4); Osmolality Calculated 317 mOsm/kg (285-295); Phosphorus 3.7 mg/dL (2.6-4.7); Potassium 4.9 mmol/L (3.5-5.1); Sodium 133 mmol/L (136-145)
[2021-05-19 18:47] LABS: Lactic Acid Reflex 1.5 mmol/L (0.4-2.0)
[2021-05-19 19:25] LABS: Add Urine Microscopic? YES; Appearance Urine Clear (Clear); Bilirubin Urine Negative (Negative); Blood Urine 1+ (Negative); Color Urine Light Yellow (Yellow); Glucose Urine UA 2+ (Negative); Ketones Urine Negative (Negative); Leukocyte Esterase Ur Trace (Negative); Nitrate Urine Negative (Negative); Protein Urine Trace (Negative); Urobilinogen Urine 0.2 mg/dL (0.2-1.0); pH Urine 5.5 (5.0-8.0)
--- NOTE | 2021-05-19 19:26 | PC.NURSE ---
report to timbo hinkle;
[2021-05-19 19:31] LABS: RBC Urine 0-2 /hpf (0-2); Squamous Epithelial Cell Urine Moderate /hpf (Few); WBC Urine 0-3 /hpf (0-3)
[2021-05-19 20:15] VITALS: BP 118/60; PULSE 64; RESP 20; TEMP 36.2; O2SAT 98
[2021-05-19 20:27] LABS: Glucose Point of Care 325 mg/dl (65-105)
== END 2021-05-19 20:27 | disposition home or self-care (01) ==
PROVIDERS: Emergency Provider Emergency Medicine; PCP Family Medicine
DX: R42 Dizziness and giddiness (principal); E11.65 Type 2 diabetes mellitus with hyperglycemia; Z79.4 Long term (current) use of insulin; I50.9 Heart failure, unspecified
CPT/HCPCS: 36415; 70450; 80053; 81001; 82948; 83605; 83735; 84100; 85025; 93005; 99283; 99284